=== PATIENT | male | born 1930 | race Caucasian/White ===

== ENCOUNTER → 2016-04-02 | Outpatient (CLI) | payer OTHER ==
--- NOTE | 2016-04-02 13:22 | US ---
Renal Sonography with Color and Spectral Doppler Assessment Clinical History: 85-year-old male with hypertension. ICD 10 Diagnostic Code: R03.0. Technique: A curvilinear 5 MHz transducer was used to sonographically evaluate each kidney, and suppl ementary color and spectral Doppler assessment of the main renal arteries and veins and of the segmen demian renal arteries was also performed. Comparison Study: None. Findings: RENAL SONOGRAPHY: The kidneys are normal in position with no focal mass, perinephric fluid, or hydron ephrosis. The right kidney measures 9.2 x 4.7 x 5.3 cm, and there is some mild renal cortical thinnin g measuring 0.98 cm. The left kidney measures 11.4 x 5.8 x 4.6 cm, and has a renal cortical thickness of 0.98 cm. Impression: Mild renal cortical thinning, with no hydronephrosis. RENAL VASCULAR DOPPLER ASSESSMENT: The peak systolic aortic velocity is 77 cm/s, and the right main r enal artery peak systolic velocity is 136 cm/s. The maximal peak systolic velocity to maximal aortic systolic velocity is 1.78 (normal should be less than 3.50). On the left side, this ratio measures 1. 37. The main renal arteries and veins are patent. There is no pulsus parvus et tardus waveform. The s ystolic ascension times range from 44 to 51 milliseconds involving the right segmental renal arteries , and up to 59 ms of the left segmental arteries (as a point of reference, normal should be under 70 ms). The resistive indices associated with each of the main renal arteries are mildly elevated (thoug h non-specific), measuring 0.81 on the right and 0.80 on the left (normal value is less than 0.70). Impression: There is no sonographic evidence of renal vascular hypertension.
== END ==
LOC: FIMAGING 11:41
PROVIDERS: ATTEND Nurse Practitioner Adult Health
DX: R03.0 Elevated blood-pressure reading, without diagnosis of hypertension (principal)

== ENCOUNTER → 2016-04-08 | Outpatient (CLI) | payer OTHER | LOC: BHFA 09:45 | PROVIDERS: ATTEND Internal Medicine Cardiovascular Disease | DX: I48.0 Paroxysmal atrial fibrillation (principal) ==

== ENCOUNTER → 2016-04-21 | Outpatient (CLI) | payer OTHER | LOC: BHFA 10:00 | PROVIDERS: ATTEND Internal Medicine Cardiovascular Disease | DX: I48.91 Unspecified atrial fibrillation (principal) ==

== ENCOUNTER → 2016-04-22 | Outpatient (CLI) | payer OTHER | LOC: BHFA 13:45 | PROVIDERS: ATTEND Internal Medicine Cardiovascular Disease | DX: I48.91 Unspecified atrial fibrillation (principal) ==

== ENCOUNTER 2016-05-11 14:05 | Emergency (ER) | payer OTHER ==
--- NOTE | 2016-05-11 15:31 | CPEKG ---
Heart Rate: 79 RR Interval: 759 P-R Interval: 171 QRSD Interval: 164 QT Interval: 452 QTC Interval: 519 P [place]: 0 QRS [place]: -90 T Wave [place]: 71 EKG Severity - ABNORMAL ECG - EKG Impression: VENTRICULAR-PACED RHYTHM Electronically Signed By: Bry Urrutia 12-May-2016 00:14:30
--- NOTE | 2016-05-11 15:44 | EDPHY ---
H & P Time Seen by Provider: 05/11/16 15:25 HPI/ROS: Chief complaint. shortness of breath, dizzy HPI. 4 day history of shortness of breath at night. Similar symptoms over the weekend. Awoke the patient. He now has exertional shortness of breath and feels his heart rate increases dramatically with any exertion. He quit Tikosyn 6 days ago began amiodarone 4 days ago. No fever cough. No chest discomfort no unusual leg pain or swelling. Pacer was last checked 1 week ago but he feels that maybe on the wrong mode ROS Constitutional. no fever/chills, no weakness Eyes. no problems with vision ENT. no sore throat, no nasal drainage Cardiovascular. no chest pain Respiratory. no shortness of breath, no cough Abdominal. no abdominal pain, no nausea/vomiting, no diarrhea . no problems urinating MS. no calf pain/swelling, no neck/back pain, no joint pain Skin. no rash Lymph. no swollen glands Neuro. no headache, no dizziness, no difficulty walking or with speech Past Medical/Surgical History: Past medical history significant for back surgery, prostate cancer, 5 vessel bypass in 1995. Mitral valve replaced air repair, Maze procedure, pacemaker Social History: , nonsmoker, no alcohol Smoking Status: Never smoked Physical Exam: General Appearance: Alert well-developed male Eyes: Pupils equal and round no pallor or injection. ENT, Mouth: Mucous membranes are moist. Respiratory: There are no retractions, lungs are clear to auscultation. Cardiovascular: Regular rate and rhythm. Gastrointestinal: Abdomen is soft and nontender, no masses, bowel sounds normal. Neurological: Awake and alert, sensory and motor exams grossly normal. Skin: Warm and dry, no rashes. Musculoskeletal: Neck is supple nontender. Extremities symmetrical, full range of motion. Psychiatric: Patient is oriented X 3, there is no agitation. Constitutional: Initial Vital Signs Temperature (C) 37 C 05/11/16 14:17 Heart Rate 84 05/11/16 14:17 Respiratory Rate 16 05/11/16 14:17 Blood Pressure 108/72 05/11/16 14:17 O2 Sat (%) 94 05/11/16 14:17 O2 Delivery Mode Room Air Allergies/Adverse Reactions: Beta-Blockers (Beta-Adrenergic Bloc Allergy (Intermediate, Verified 05/11/16 14: 22) Congestion Home Medications: Medication Instructions Recorded Magnesium Oxide [Magnesium Oxide 400 mg PO HS 01/01/13 400 mg (*)] Warfarin Sodium [Coumadin 5MG (*)] 5 mg PO SUTUWETHFRSA@16 04/14/13 Aspirin [Aspirin 81mg (*)] 81 mg PO HS 02/12/14 Warfarin Sodium [Coumadin 5MG (*)] 7.5 mg PO MO@16 02/12/14 Acetaminophen [Tylenol 325mg (*)] 650 mg PO Q6 PRN #0 tab 09/02/15 Multivitamins [Multivitamin (*)] 1 each PO DAILY 09/02/15 Rosuvastatin Calcium [Crestor 5mg] 5 mg PO HS 09/02/15 Amiodarone HCl 05/11/16 Medical Decision Making - Diagnostics EKG Interpretation: EKG shows ventricular paced rhythms. Interventricular conduction defect with this with left axis deviation. No significant ST elevation or depression. The rate is 79 Imaging: cxr intepreted by me shows increased heart size compared to 7 mo ago; c/w chf; patchy bilateral lower lobe infiltrates--pneumonia vs atelectasis Procedures: iv normal saline, mon itor ED Course/Re-evaluation: re-check at 5:10 pm-- patient is stable Pacemaker has been interrogated and no acute malfunction is identified On further evaluation and re-evaluation patient, his , and I discussed laboratory imaging and EKG evaluation as well as the pacemaker interrogation. The patient does appeared have CHF. I am concerned also as he has been switching medications per his corrective therapy aide. I recommended admission. The patient does not want to be admitted. I spoke and consulted with Dr. Garrett, cardiology, who feels that it would be reasonable to discharge the patient today and their office will see the patient tomorrow morning. I discussed this with the patient and his and they expressed understanding and agreement In the meantime blood cultures x2 and lactate are obtained because of concern for possible pneumonia Patient given Lasix in the emergency department for elevated BNP Patient's lactate is normal Patient was walking out of the department got very lightheaded was bending over and was near syncope. He was brought back to the room. We did do orthostatics which are borderline positive. I re-emphasized to the patient that I think he should stay in the hospital. He refuses. Risks and benefits are discussed. He is clearly able to make an informed decision Differential Diagnosis: I have been concerned about acute coronary syndrome, congestive heart failure, pneumonia, arrhythmia, pacemaker malfunction - Data Points Laboratory Results: Laboratory Results 05/11/16 15:27 05/11/16 15:27 05/11/16 05/11/16 05/11/16 17:35 15:27 15:27 WBC RBC Hgb Hct MCV MCH MCHC RDW Plt Count MPV Neut % (Auto) Lymph % (Auto) [place] % (Auto) Eos % (Auto) Baso % (Auto) Nucleat RBC Rel Count Absolute Neuts (auto) Absolute Lymphs (auto) Absolute Monos (auto) Absolute Eos (auto) Absolute Basos (auto) Absolute Nucleated RBC Immature Gran % Immature Gran # PT 38.5 SEC H SEC (12.0-15.0) INR 3.85 H (0.83-1.16) APTT 43.9 SEC H SEC (23.0-38.0) D-Dimer 0.34 ug/mLFEU ug/mLFEU (0.00-0.50) VBG Lactic Acid 1.4 mmol/L mmol/L (0.7-2.1) Sodium 138 mEq/L mEq/L (134-144) Potassium 5.0 mEq/L mEq/L (3.5-5.2) Chloride 104 mEq/L mEq/L (97-110) Carbon Dioxide 23 mEq/l mEq/l (22-31) Anion Gap 11 mEq/L mEq/L (8-16) BUN 39 mg/dL H mg/dL (7-23) Creatinine 1.5 mg/dL H mg/dL (0.7-1.3) Estimated GFR 44 Glucose 95 mg/dL mg/dL (70-100) Calcium 9.3 mg/dL mg/dL (8.5-10.4) Troponin I 0.022 ng/mL ng/mL (0-0.034) NT-Pro-B Natriuret Pep 2570 pg/mL H pg/mL (0-450) 05/11/16 15:27 WBC 6.31 10^3/uL 10^3/uL (3.80-9.50) RBC 4.69 10^6/uL 10^6/uL (4.40-6.38) Hgb 13.7 g/dL g/dL (13.7-17.5) Hct 43.1 % % (40.0-51.0) MCV 91.9 fL fL (81.5-99.8) MCH 29.2 pg pg (27.9-34.1) MCHC 31.8 g/dL L g/dL (32.4-36.7) RDW 14.3 % % (11.5-15.2) Plt Count 126 10^3/uL L 10^3/uL (150-400) MPV 12.9 fL H fL (8.7-11.7) Neut % (Auto) 72.8 % % (39.3-74.2) Lymph % (Auto) 14.9 % L % (15.0-45.0) [place] % (Auto) 10.1 % % (4.5-13.0) Eos % (Auto) 1.7 % % (0.6-7.6) Baso % (Auto) 0.3 % % (0.3-1.7) Nucleat RBC Rel Count 0.0 % % (0.0-0.2) Absolute Neuts (auto) 4.59 10^3/uL 10^3/uL (1.70-6.50) Absolute Lymphs (auto) 0.94 10^3/uL L 10^3/uL (1.00-3.00) Absolute Monos (auto) 0.64 10^3/uL 10^3/uL (0.30-0.80) Absolute Eos (auto) 0.11 10^3/uL 10^3/uL (0.03-0.40) Absolute Basos (auto) 0.02 10^3/uL 10^3/uL (0.02-0.10) Absolute Nucleated RBC 0.00 10^3/uL 10^3/uL (0-0.01) Immature Gran % 0.2 % % (0.0-1.1) Immature Gran # 0.01 10^3/uL 10^3/uL (0.00-0.10) PT INR APTT D-Dimer VBG Lactic Acid Sodium Potassium Chloride Carbon Dioxide Anion Gap BUN Creatinine Estimated GFR Glucose Calcium Troponin I NT-Pro-B Natriuret Pep Medications Given: Discontinued Medications Furosemide (Lasix) 40 mg PO EDNOW ONE Stop: 05/11/16 17:28 Last Admin: 05/11/16 17:44 Dose: 40 mg Sodium Chloride (Ns) 1,000 mls @ 0 mls/hr IV ONCE ONE PRN Reason: Wide Open Stop: 05/11/16 15:59 Last Admin: 05/11/16 16:33 Dose: 1,000 mls Departure - Departure Disposition: Home, Routine, Self-Care Clinical Impression: Congestive heart failure Qualifiers: Congestive heart failure type: unspecified congestive heart failure type Congestive heart failure chronicity: unspecified congestive heart failure chronicity Qualified Code(s): I50.9 - Heart failure, unspecified Condition: Good Instructions: Dyspnea (ED) Additional Instructions: Continue your regular medications. Return tonight for worsening breathing or chest discomfort. Call Dr. Townsend is office at 8:30 a.m. tomorrow morning for re- evaluation without fail. Referrals: Naila Coyle MD [Primary Care Provider] - As per Instructions Melvin Townsend MD [Medical Doctor] - 1 day without fail
[2016-05-11] MEDS ORDERED: NS 1,000 ML IV ONE (15:58)
[2016-05-11 16:08] LABS: % IMMATURE GRANULYOCYTES 0.2 % (0.0-1.1); ABSOLUTE IMMATURE GRANULOCYTES 0.01 10^3/uL (0.00-0.10); ADD DIFF? NO; ADD MORPH? NO; ADD SCAN? NO; ATYPICAL LYMPHOCYTE FLAG 10 (0-99); FRAGMENT RBC FLAG 0 (0-99); HEMATOCRIT 43.1 % (40.0-51.0); HEMOGLOBIN 13.7 g/dL (13.7-17.5); LEFT SHIFT FLG 0 (0-99); LIPEMIA HEMOLYSIS FLAG 80 (0-99); MEAN CELL HEMOGLOBIN 29.2 pg (27.9-34.1); MEAN CELL HEMOGLOBIN CONCENTR. 31.8 g/dL (32.4-36.7); MEAN CELL VOLUME 91.9 fL (81.5-99.8); MEAN PLATELET VOLUME 12.9 fL (8.7-11.7); PLATELET CLUMPS FLAG 0 (0-99); PLATELET COUNT 126 10^3/uL (150-400); RED BLOOD CELL COUNT 4.69 10^6/uL (4.40-6.38); RED CELL DISTRIBUTION WIDTH 14.3 % (11.5-15.2)
[2016-05-11 16:14] LABS: ANION GAP 11 mEq/L (8-16); CALCIUM 9.3 mg/dL (8.5-10.4); CARBON DIOXIDE 23 mEq/l (22-31); CHLORIDE 104 mEq/L (97-110); CREATININE 1.5 mg/dL (0.7-1.3); GLOMERULAR FILTRATION RATE 44; GLUCOSE 95 mg/dL (70-100); SODIUM 138 mEq/L (134-144)
[2016-05-11 16:17] LABS: INR 3.85 (0.83-1.16); PROTIME(PATIENT) 38.5 SEC (12.0-15.0)
[2016-05-11 16:18] LABS: APTT 43.9 SEC (23.0-38.0)
[2016-05-11 16:26] LABS: TROPONIN I 0.022 ng/mL (0-0.034)
[2016-05-11] MEDS ORDERED: FUROSEMIDE 40 MG TAB PO ONE (17:27)
[2016-05-11 18:15] VITALS: BP 115/78; PULSE 75; RESP 18; TEMP 99; O2SAT 93
== END 2016-05-11 18:42 | disposition home or self-care (01) ==
DX: I50.9 Heart failure, unspecified (principal); Z85.46 Personal history of malignant neoplasm of prostate; Z95.0 Presence of cardiac pacemaker; Z79.82 Long term (current) use of aspirin; Z79.01 Long term (current) use of anticoagulants

== ENCOUNTER 2016-05-12 09:11 | Inpatient (IN) | payer OTHER ==
--- NOTE | 2016-05-12 09:24 | EDPHY ---
H & P Time Seen by Provider: 05/12/16 09:24 HPI/ROS: CHIEF COMPLAINT: Short of breath, sent for admission from Cardiology HISTORY OF PRESENT ILLNESS: Patient was seen in the emergency department yesterday for nocturnal dyspnea was evaluated and admission recommended but the patient left against medical advice. He had been on Tikosyn, and had been off for several days but did not start his amiodarone until noon on Tuesday. Yesterday he appeared to be in congestive heart failure. He is a little bit dizzy on sitting or standing, lightheaded and not vertigo. He has shortness of breath which is not associated with cough or chest pain and is worse at night and he was unable to lie completely flat last night. Not worse with exertion. REVIEW OF SYSTEMS: Eye: no change in vision ENT: no sore throat Cardiac: HPI Pulmonary: HPI Abdomen: no vomiting, diarrhea, abdominal pain Musculoskeletal: Slight lower extremity edema unchanged Skin: no rash Neuro: no headache Constitutional: no fever : no urinary symptoms A comprehensive 10 point review of systems is otherwise negative aside from elements mentioned in the history of present illness. PAST MEDICAL HISTORY: Includes 5 vessel bypass, prostate cancer, back surgery, mitral valve replacement with Maze procedure, pacemaker. Social history: , present. General Appearance: Alert and conversant, cooperative. Eyes: No scleral icterus. ENT, Mouth: Normal mucous membranes. Respiratory: Normal respiratory effort, breath sounds equal, lungs are clear to auscultation. Cardiovascular: Irregular rate Gastrointestinal: Abdomen is soft and non tender. Neurological: Alert and oriented x3. Normally conversant. Face symmetric, normal movement and sensation in all extremities. Skin: Warm and dry, no rashes. Musculoskeletal: Trace bilateral peripheral edema but no calf tenderness. Psychiatric: Not agitated. Emergency Department course/MDM: Discussed with Cardiology nurse Esther who works with [facility], recommends admission. Patient says he is agreeable. Meri Suarez at 1054, 150mg IV bolus x2 of amiodarone, admission to hospital. Smoking Status: Never smoked Constitutional: Initial Vital Signs Temperature (C) 36.3 C 05/12/16 09:15 Heart Rate 81 05/12/16 09:15 Respiratory Rate 18 05/12/16 09:15 Blood Pressure 111/74 05/12/16 09:15 O2 Sat (%) 92 05/12/16 09:15 O2 Delivery Mode Room Air Allergies/Adverse Reactions: Beta-Blockers (Beta-Adrenergic Bloc Allergy (Intermediate, Verified 05/12/16 09: 11) Congestion Home Medications: Medication Instructions Recorded Magnesium Oxide [Magnesium Oxide 400 mg PO HS 01/01/13 400 mg (*)] Aspirin [Aspirin 81mg (*)] 81 mg PO HS 02/12/14 Multivitamins [Multivitamin (*)] 1 each PO DAILY 09/02/15 Rosuvastatin Calcium [Crestor 5mg] 5 mg PO HS 09/02/15 Amiodarone HCl [Pacerone (*)] 200 mg PO TID 05/11/16 Warfarin Sodium [Coumadin 2.5MG 2.5 mg PO WESA@16 05/12/16 (*)] Warfarin Sodium [Coumadin 5MG (*)] 5 mg PO SUMOTUTHFR@16 05/12/16 Medical Decision Making - Diagnostics EKG Interpretation: 12-lead EKG interpreted by me; official reading is in trace master. My interpretation is ventricular pacing with right bundle branch, rate 81. Differential Diagnosis: Differential for near-syncope considered including but not limited to hypoglycemia, anemia, cardiac dysrhythmia, medication side effect Consult/Admit Bed Type: [facility] - Data Points Laboratory Results: Laboratory Results 05/12/16 09:45 05/12/16 09:45 05/12/16 05/12/16 05/12/16 09:45 09:45 09:45 WBC 7.16 10^3/uL 10^3/uL (3.80-9.50) RBC 4.60 10^6/uL 10^6/uL (4.40-6.38) Hgb 13.7 g/dL g/dL (13.7-17.5) Hct 42.9 % % (40.0-51.0) MCV 93.3 fL fL (81.5-99.8) MCH 29.8 pg pg (27.9-34.1) MCHC 31.9 g/dL L g/dL (32.4-36.7) RDW 14.3 % % (11.5-15.2) Plt Count 129 10^3/uL L 10^3/uL (150-400) MPV 12.9 fL H fL (8.7-11.7) Neut % (Auto) 74.0 % % (39.3-74.2) Lymph % (Auto) 13.4 % L % (15.0-45.0) [place] % (Auto) 9.5 % % (4.5-13.0) Eos % (Auto) 2.4 % % (0.6-7.6) Baso % (Auto) 0.3 % % (0.3-1.7) Nucleat RBC Rel Count 0.0 % % (0.0-0.2) Absolute Neuts (auto) 5.30 10^3/uL 10^3/uL (1.70-6.50) Absolute Lymphs (auto) 0.96 10^3/uL L 10^3/uL (1.00-3.00) Absolute Monos (auto) 0.68 10^3/uL 10^3/uL (0.30-0.80) Absolute Eos (auto) 0.17 10^3/uL 10^3/uL (0.03-0.40) Absolute Basos (auto) 0.02 10^3/uL 10^3/uL (0.02-0.10) Absolute Nucleated RBC 0.00 10^3/uL 10^3/uL (0-0.01) Immature Gran % 0.4 % % (0.0-1.1) Immature Gran # 0.03 10^3/uL 10^3/uL (0.00-0.10) PT 39.8 SEC H SEC (12.0-15.0) INR 4.01 H (0.83-1.16) APTT 46.8 SEC H SEC (23.0-38.0) Sodium 139 mEq/L mEq/L (134-144) Potassium 4.3 mEq/L mEq/L (3.5-5.2) Chloride 107 mEq/L mEq/L (97-110) Carbon Dioxide 21 mEq/l L mEq/l (22-31) Anion Gap 11 mEq/L mEq/L (8-16) BUN 40 mg/dL H mg/dL (7-23) Creatinine 1.6 mg/dL H mg/dL (0.7-1.3) Estimated GFR 41 Glucose 101 mg/dL H mg/dL (70-100) Calcium 9.5 mg/dL mg/dL (8.5-10.4) Troponin I 0.025 ng/mL ng/mL (0-0.034) NT-Pro-B Natriuret Pep 2490 pg/mL H pg/mL (0-450) Medications Given: Discontinued Medications Amiodarone HCl (Amiodarone Hcl) 150 mg IV EDNOW ONE Stop: 05/12/16 10:56 Last Admin: 05/12/16 12:02 Dose: 150 mg Amiodarone HCl (Amiodarone Hcl) 100 mls @ 600 mls/hr IV ONCE ONE Stop: 05/12/16 12:50 Last Admin: 05/12/16 13:19 Dose: 100 mls Departure - Departure Disposition: [facility] Clinical Impression: Atrial fibrillation Qualifiers: Atrial fibrillation type: unspecified Qualified Code(s): I48.91 - Unspecified atrial fibrillation Condition: Good
--- NOTE | 2016-05-12 09:46 | CPEKG ---
Heart Rate: 81 RR Interval: 741 P-R Interval: 144 QRSD Interval: 154 QT Interval: 428 QTC Interval: 497 P [place]: 0 QRS [place]: -81 T Wave [place]: 79 EKG Severity - ABNORMAL ECG - EKG Impression: VENTRICULAR-PACED COMPLEXES EKG Impression: RIGHT BUNDLE BRANCH BLOCK Electronically Signed By: Evangelista Minor 12-May-2016 09:58:39
[2016-05-12 09:57] LABS: % IMMATURE GRANULYOCYTES 0.4 % (0.0-1.1); ABSOLUTE IMMATURE GRANULOCYTES 0.03 10^3/uL (0.00-0.10); ADD DIFF? NO; ADD MORPH? NO; ADD SCAN? NO; ATYPICAL LYMPHOCYTE FLAG 0 (0-99); FRAGMENT RBC FLAG 0 (0-99); HEMATOCRIT 42.9 % (40.0-51.0); HEMOGLOBIN 13.7 g/dL (13.7-17.5); LEFT SHIFT FLG 0 (0-99); LIPEMIA HEMOLYSIS FLAG 80 (0-99); MEAN CELL HEMOGLOBIN 29.8 pg (27.9-34.1); MEAN CELL HEMOGLOBIN CONCENTR. 31.9 g/dL (32.4-36.7); MEAN CELL VOLUME 93.3 fL (81.5-99.8); MEAN PLATELET VOLUME 12.9 fL (8.7-11.7); PLATELET CLUMPS FLAG 20 (0-99); PLATELET COUNT 129 10^3/uL (150-400); RED CELL DISTRIBUTION WIDTH 14.3 % (11.5-15.2)
[2016-05-12 10:07] LABS: APTT 46.8 SEC (23.0-38.0); INR 4.01 (0.83-1.16); PROTIME(PATIENT) 39.8 SEC (12.0-15.0)
[2016-05-12 10:16] LABS: ANION GAP 11 mEq/L (8-16); CALCIUM 9.5 mg/dL (8.5-10.4); CARBON DIOXIDE 21 mEq/l (22-31); CHLORIDE 107 mEq/L (97-110); CREATININE 1.6 mg/dL (0.7-1.3); GLOMERULAR FILTRATION RATE 41; GLUCOSE 101 mg/dL (70-100); POTASSIUM 4.3 mEq/L (3.5-5.2); SODIUM 139 mEq/L (134-144)
[2016-05-12 10:28] LABS: TROPONIN I 0.025 ng/mL (0-0.034)
[2016-05-12] MEDS ORDERED: AMIODARONE HCL 150 MG/3 ML VIAL IV ONE (10:55)
[2016-05-12] MEDS ORDERED: AMIODARONE HCL 100 ML IV ONE (12:41)
--- NOTE | 2016-05-12 14:10 | PDCARPN ---
Cardiology Progress Note Chief Complaint: Tachycardia and lightheadedness Assessment/Plan: Assessment: Royal is a 85 y/o M with a history of difficult to control atrial fibrillation , tachy melly syndrome s/p pacemaker, and CAD s/p CABG. He was last seen in our office on 05/[address] Mcneill who d/c his Tikosyn at that time and started him on Amiodarone. He misunderstood and did not start Amio until Wednesday 05/10 at noon. He presented to the ER yesterday with a.fib with RVR and presyncope. Admission was recommended but he refused. He presented to our office this morning with similar symptoms and was directed back to the ER. He is convinced that his pacemaker is not working. It was interrogated yesterday and working properly. He is in a.fib rate controlled at 78 BPM at rest. His rates spike with even minimal exertion and are associated with presyncope. Plan: Amiodarone 150mg bolus x1. If he remains in atrial fibrillation it can be repeat 30 minutes later. Will plan to d/c home if he converts NSR. If he remains in a.fib with RVR he will be admitted for rate control. INR is supratherapeutic. Dose was already reduced but will need to hold x1 day and continue to monitor. 05/12/16 14:38 Subjective: Pt complaining of dizziness and tachycardia with standing. Objective: Vital Signs (8 Hrs) Temp Pulse Resp BP Pulse Ox 05/12/16 13:49 85 20 89/60 L 98 05/12/16 12:31 79 126/89 H 05/12/16 12:20 81 16 05/12/16 12:10 79 18 05/12/16 12:00 79 16 95 05/12/16 11:18 36.6 C 85 16 128/90 H 96 Intake/Output (24 Hrs) 05/11/16 05/12/16 05/13/16 05:59 05:59 05:59 Intake Total 200 Balance 200 Intake: IV Infused (ml) 200 Other: Weight 82.2 kg tele-a.fib with V pacing Result Diagrams: 05/12/16 09:45 05/12/16 09:45 - Physical Exam Constitutional: WDWN Cardiovascular: no rubs, no gallops, irregularly irregular Respiratory: clear to auscultate bilat Skin: no edema Neurologic: AAOx3 ICD10 Worksheet Patient Problems: Problems Problem Status Onset Atrial fibrillation Acute Chest pain Acute Coronary artery arteriosclerosis Acute Syncope Acute
[2016-05-12] MEDS ORDERED: ACETAMINOPHEN 325 MG TAB PO PRN (15:48)
[2016-05-12] MEDS ORDERED: ONDANSETRON DISINTEGRATING 4 MG TAB PO PRN (15:48)
[2016-05-12] MEDS ORDERED: LORazepam 2 MG/ML INJ IVP PRN (15:48)
[2016-05-12] MEDS ORDERED: ALBUTEROL 60 PUFFS/8 GM MDI IH PRN (15:48)
[2016-05-12] MEDS ORDERED: ZOLPIDEM TARTRATE 5 MG TAB PO PRN (15:48)
[2016-05-12] MEDS ORDERED: LORazepam 0.5 MG TAB PO PRN (15:48)
[2016-05-12] MEDS ORDERED: ONDANSETRON 4 MG/2 ML VIAL IVP PRN (15:48)
[2016-05-12] MEDS ORDERED: WARFARIN SODIUM 2.5 MG TAB PO SCH (16:00)
[2016-05-12] MEDS: AMIODARONE HCL 200 MG TAB PO SCH ×2 (16:14→20:30)
--- NOTE | 2016-05-12 16:27 | GHP ---
[f rep st] HISTORY AND PHYSICAL DATE OF ADMISSION: 05/12/2016 CHIEF COMPLAINT: Shortness of breath. HISTORY OF PRESENT ILLNESS: This is an elderly gentleman who presents with a complaint of shortness of breath for approximately 5 days. The gentleman stopped his Tikosyn approximately 5 days ago, an d perhaps 3 days ago he noticed a feeling of nocturnal dyspnea. He was short of breath for approxim ately 2-3 hours at night three days ARMHOLE BASTER HAND. It then seemed to resolve during the day and then would in termittently come back again at 1 and 2 days ARMHOLE BASTER HAND. This has occurred without clear history of orthop ramon, PND, or peripheral edema. He has also had no chest pain, nausea, vomiting, or diaphoresis. Of note, the gentleman has a history of atrial fibrillation, and beta-blockers are contraindicated. Antonio winters was on Tikosyn, but this was stopped 5 days ARMHOLE BASTER HAND because of prolonged QT interval. Amiodarone was started today. He had presented earlier to the emergency department and was told to start his amiod arone, went home but came back because of recurrent shortness of breath. Again, this has occurred w ithout chest pain. He has a history of a mitral valve replacement, is anticoagulated, prior coronar y artery disease with a CABG x5 vessels, and has a pacemaker in place. Though he has been short of breath, he has had no dizziness, weakness, or near-syncopal episodes. PAST MEDICAL HISTORY: 1. Coronary artery disease, status post CABG x5 vessels. 2. Atrial fibrillation and atrial flutter, on Coumadin anticoagulation. 3. Hypertension. 4. Chronic systolic congestive heart failure with a known EF approximately 50%. 5. Valvular heart disease, status post mitral valve repair with a maze procedure. 6. He had a pacemaker placed. PAST SURGICAL HISTORY: 1. A 5-vessel CABG. 2. A maze procedure and 1-vessel CABG. 3. Mitral valve repair. 4. Permanent pacemaker. SOCIAL HISTORY: The gentleman is . His is currently suffering from dementia. The alvin ent has 2 children in the local area. He is a nonsmoker and has never smoked. No drug use. No alc ohol. He exercises regularly. FAMILY HISTORY: He has family members who have had coronary artery disease at the ages less than 60 including a brother who had an IN at the age of 38, which was a cause of the brother's . His father had an IN at 55 which was also the cause of his . CURRENT MEDICATIONS: Now include amiodarone, Coumadin at 5 mg alternating with 2.5 on a schedule, C restor, multivitamins, aspirin, and magnesium oxide. REVIEW OF SYSTEMS: A 10-point review of systems is negative except as noted in the HPI. Specifical ly, also negative is he has had no nausea, vomiting, or change in bowel habits or any abdominal pain . He also notes no dysuria, frequency, or back pain. He is concerned about a renal ultrasound that was done approximately a month ago, and I have offered to obtain the results of that study. He has some minor joint aches but no constant single joint problems and no history of gout. ALLERGIES: He is allergic to a beta-bonita. Beta-blockers cause probably pulmonary edema and jarad estive heart failure. It is unclear which, but he has had them on several occasions and all have re sulted in episodes of congestive failure. PHYSICAL EXAMINATION: GENERAL: A pleasant gentleman who is resting comfortably in his room during my evaluation. VITAL SIGNS: He is afebrile, adequate oxygenation on room air. Blood pressure is n ormal, and his heart rate varies between paced and atrial fibrillation. The atrial fibrillation can vary as high as 110-115, but when he drops into a paced rhythm, he is paced at approximately 80. H EENT: Shows no scleral icterus or nystagmus. Throat is benign. Tongue and buccal mucosa are emilia l. JVP does not appear to be elevated. LUNGS: Clear to P and A without wheezing or rales. HEART: Singular S1 and a fixed split S2. He has a systolic ejection murmur and a loud S2 noted. No LV h eave is noted. ABDOMEN: Thin, normoactive bowel sounds, benign. No masses, tenderness, or organom egaly. EXTREMITIES: No edema, cyanosis, clubbing. LABORATORY: CBC is normal but a slightly low platelet count of 129,000. INR is elevated at 4.0. C hemistry panel shows chronic kidney disease along with a BUN of 40, creatinine of 1.6, and a BNP kervin vated at 2490. Potassium is 4.3. ASSESSMENT: 1. Acute episodes of dyspnea and perhaps shortness of breath probably related to episodes of uncont rolled atrial fibrillation with rapid ventricular response. The gentleman stop Tikosyn because of p rolonged QT interval but had to wash out the Tikosyn before he began the amiodarone. In the interva l, he has probably had episodes of atrial fibrillation with RVR. He is adequately anticoagulated so his risk of stroke is considerably reduced here. Today I note that he varies between a paced rhyth m and atrial fibrillation at approximately 110-115. He is not experiencing any shortness of breath. He has restarted his amiodarone which he is taking at 200 three times daily. Thus, we will contin ue his amiodarone, continue to monitor, and assess stability. It is possible that the pacemaker may need to be interrogated as he says at times he has had slower heart rates than 80. I suspect he is counting beats of atrial fibrillation and cannot feel the actual measured beat because the pulse is weak on various beats in atrial fibrillation. Despite that, I will contact Cardiology and see if linda swartz have some interest in interrogating his pacemaker. 2. History of hypertension, but he is normotensive at this time. 3. Beta-bonita allergy. These need to be avoided in control of his atrial fibrillation as Boydlawson potter is doing. 4. Anticoagulation on Coumadin. I am going to continue his usual schedule of Coumadin. He is curr ently adequately anticoagulated. 5. Chronic problems with prior lumbar surgery, mitral valve replacement, and a pacemaker. 6. DVT prophylaxis will be unnecessary as he is adequately anticoagulated. 7. His code status is full. BILLING: This gentleman will be admitted on observation status. It is possible we will be able to stabilize this gentleman in the next 24 hours just by continuing his amiodarone. Should this not co ntrol, then we will need to convert him to inpatient, but at this time we will place him in observat ion. TIME: This admission required 55 minutes, greater than 50% to vocational rehabilitation counselor and coordinate care. /[id number]/MODL
[2016-05-12] MEDS ORDERED: WARFARIN SODIUM 5 MG TAB PO SCH (17:00)
[2016-05-12] MEDS: ASPIRIN 81 MG CHEWABLE TAB PO SCH (20:30)
[2016-05-12] MEDS: ROSUVASTATIN CALCIUM 10 MG TAB PO SCH (20:30)
[2016-05-12] MEDS: MAGNESIUM OXIDE 400 MG TAB PO SCH (20:30)
[2016-05-13 05:15] LABS: % IMMATURE GRANULYOCYTES 0.3 % (0.0-1.1); ABSOLUTE IMMATURE GRANULOCYTES 0.02 10^3/uL (0.00-0.10); ADD DIFF? NO; ADD MORPH? NO; ADD SCAN? NO; ATYPICAL LYMPHOCYTE FLAG 0 (0-99); FRAGMENT RBC FLAG 0 (0-99); HEMATOCRIT 40.6 % (40.0-51.0); HEMOGLOBIN 12.9 g/dL (13.7-17.5); LEFT SHIFT FLG 0 (0-99); LIPEMIA HEMOLYSIS FLAG 80 (0-99); MEAN CELL HEMOGLOBIN 29.6 pg (27.9-34.1); MEAN CELL HEMOGLOBIN CONCENTR. 31.8 g/dL (32.4-36.7); MEAN CELL VOLUME 93.1 fL (81.5-99.8); MEAN PLATELET VOLUME 12.8 fL (8.7-11.7); PLATELET CLUMPS FLAG 0 (0-99); PLATELET COUNT 119 10^3/uL (150-400); RED BLOOD CELL COUNT 4.36 10^6/uL (4.40-6.38); RED CELL DISTRIBUTION WIDTH 14.3 % (11.5-15.2)
[2016-05-13 05:24] LABS: INR 4.74 (0.83-1.16); PROTIME(PATIENT) 45.5 SEC (12.0-15.0)
[2016-05-13 05:30] LABS: ANION GAP 10 mEq/L (8-16); CALCIUM 9.3 mg/dL (8.5-10.4); CARBON DIOXIDE 24 mEq/l (22-31); CHLORIDE 107 mEq/L (97-110); CREATININE 1.7 mg/dL (0.7-1.3); GLOMERULAR FILTRATION RATE 38; GLUCOSE 97 mg/dL (70-100); POTASSIUM 4.8 mEq/L (3.5-5.2); SODIUM 141 mEq/L (134-144)
[2016-05-13] MEDS: MULTIVITAMINS 1 EACH TAB PO SCH (08:38)
[2016-05-13] MEDS: AMIODARONE HCL 200 MG TAB PO SCH (08:39)
--- NOTE | 2016-05-13 09:25 | CPEKG ---
Heart Rate: 79 RR Interval: 759 P-R Interval: 170 QRSD Interval: 160 QT Interval: 460 QTC Interval: 528 P Sylmar: 0 QRS Sylmar: 267 T Wave Sylmar: 82 EKG Severity - ABNORMAL ECG - EKG Impression: VENTRICULAR-PACED RHYTHM Electronically Signed By: Gatito Morgan 14-May-2016 09:07:14
[2016-05-13] MEDS ORDERED: AMIODARONE HCL 540 MG in D5W 300 ML IV ONE (10:25)
--- NOTE | 2016-05-13 10:39 | PDCARPN ---
Cardiology Progress Note Chief Complaint: mild dizziness with walking Assessment/Plan: Assessment: Royal is a 85 y/o M with a history of difficult to control atrial fibrillation , tachy melly syndrome s/p pacemaker, and CAD s/p CABG. He was last seen in our office on 05/[address] Mcneill who d/c his Tikosyn at that time and started him on Amiodarone. He misunderstood and did not start Amio until Wednesday 05/10 at noon. He presented to the ER yesterday with a.fib with RVR and presyncope. Admission was recommended but he refused. He presented to our office this morning with similar symptoms and was directed back to the ER. He is convinced that his pacemaker is not working. It was interrogated yesterday and working properly. He is in a.fib rate controlled at 78 BPM at rest. His rates spike with even minimal exertion and are associated with presyncope. He was given Amiodarone 150mg IV x2 yesterday. His rates are better controlled with standing and exertion at 110. He is still mildly dizzy with this. Plan: 1. PAF- rates are well controlled at rest but spike with even minimal exertion. This is associated with presyncope. His rates are better controlled today but he has remained in a.fib. Will given maintance infusion over 18 hours and continue to monitor. If he converts to NSR he can be d/c home. If he remains in a.fib plan for CV tomorrow morning. His INR has been therapeutic over the past month. He is now supratherapeutic. Continue to hold Coumadin and likely d /c home on 2.5mg daily. 05/13/16 10:35 Subjective: c/o mild dizziness with exertion but it is improved from yesterday. No syncope or presyncope. Objective: Vital Signs (8 Hrs) Temp Pulse Resp BP Pulse Ox 05/13/16 08:00 36.4 C 79 16 129/92 H 98 05/13/16 04:00 36.7 C 96 18 109/89 H 96 Intake/Output (24 Hrs) 05/12/16 05/13/16 05/14/16 05:59 05:59 05:59 Intake Total 700 Balance 700 Intake: Oral (ml) 500 IV Infused (ml) 200 Other: Weight 82.2 kg Number of Voids Toilet 1 Result Diagrams: 05/13/16 04:48 05/13/16 04:48 EKG: V-paced with underlying a.fib Telemetry: V-paced with underlying a.fib - Physical Exam Constitutional: WDWN Cardiovascular: no murmurs, no rubs, no gallops, irregularly irregular Respiratory: clear to auscultate bilat, no crackles, no wheezes Skin: no edema ICD10 Worksheet Patient Problems: Problems Problem Status Onset Atrial fibrillation Acute Atrial fibrillation Acute Chest pain Acute Coronary artery arteriosclerosis Acute Syncope Acute
--- NOTE | 2016-05-13 11:35 | HOSPPROG ---
Hospitalist Progress Note Assessment/Plan: * atrial fibrillation rapid ventricular response * rate better * getting amiodarone infusion * recently stopped Tykosin due to long QT * cardioversion the morning if does not convert * acute renal failure * not sure the cause * may try a little bit of fluid overnight and recheck * elevated INR * holding Coumadin * coronary artery disease status post CABG * hypertension * chronic systolic CHF * status post mitral valve repair * pacemaker Subjective: no new complaints Objective: Vital Signs Temp Pulse Resp BP Pulse Ox 36.3 C 80 20 112/68 98 05/13/16 10:53 05/13/16 10:53 05/13/16 10:53 05/13/16 10:53 05/13/16 10:53 Laboratory Results 05/13/16 04:48 05/13/16 04:48 05/12/16 05/13/16 05/14/16 05:59 05:59 05:59 Intake Total 700 500 Balance 700 500 PT 45.5 SEC (12.0-15.0) H 05/13/16 04:48 INR 4.74 (0.83-1.16) H 05/13/16 04:48 tele personally viewed interpreted rate controlled atrial fibrillation discussed with Cardiology - Physical Exam Constitutional: no apparent distress, appears nourished, not in pain Eyes: anicteric sclera, EOMI Ears, Nose, Mouth, Throat: moist mucous membranes, hearing normal, ears appear normal Cardiovascular: no murmur, rub, or gallop, irregularly irregular Respiratory: no respiratory distress, no rales or rhonchi, clear to auscultation Gastrointestinal: normoactive bowel sounds, soft, non-tender abdomen, no palpable masses Skin: warm Neurologic: AAOx3 Psychiatric: interacting appropriately, not anxious, not encephalopathic, thought process linear ICD10 Worksheet Patient Problems: Problems Problem Status Onset Atrial fibrillation Acute Atrial fibrillation Acute Chest pain Acute Coronary artery arteriosclerosis Acute Syncope Acute
[2016-05-13] MEDS: ROSUVASTATIN CALCIUM 10 MG TAB PO SCH (21:59)
[2016-05-13] MEDS: MAGNESIUM OXIDE 400 MG TAB PO SCH (22:00)
[2016-05-13] MEDS: ASPIRIN 81 MG CHEWABLE TAB PO SCH (22:00)
[2016-05-14 05:21] LABS: CALCIUM 9.6 mg/dL (8.5-10.4); CARBON DIOXIDE 21 mEq/l (22-31); CHLORIDE 107 mEq/L (97-110); CREATININE 1.8 mg/dL (0.7-1.3); GLOMERULAR FILTRATION RATE 36; GLUCOSE 111 mg/dL (70-100); SODIUM 139 mEq/L (134-144)
[2016-05-14 05:22] LABS: ANION GAP 11 mEq/L (8-16); POTASSIUM 5.1 mEq/L (3.5-5.2)
[2016-05-14 05:42] LABS: INR 4.18 (0.83-1.16); PROTIME(PATIENT) 41.1 SEC (12.0-15.0)
[2016-05-14 05:43] LABS: APTT 46.7 SEC (23.0-38.0)
[2016-05-14] MEDS: MULTIVITAMINS 1 EACH TAB PO SCH (07:35)
--- NOTE | 2016-05-14 09:16 | CPEKG ---
Heart Rate: 79 RR Interval: 759 P-R Interval: 168 QRSD Interval: 170 QT Interval: 464 QTC Interval: 533 P Somers: 0 QRS Somers: -88 T Wave Somers: 84 EKG Severity - ABNORMAL ECG - EKG Impression: VENTRICULAR-PACED RHYTHM Electronically Signed By: Gatito Morgan 14-May-2016 14:31:41
[2016-05-14] MEDS ORDERED: PROPOFOL 200 MG/20 ML VIAL ONE (11:57)
--- NOTE | 2016-05-14 12:15 | CPEKG ---
Heart Rate: 70 RR Interval: 857 QRSD Interval: 126 QT Interval: 452 QTC Interval: 488 QRS Clements: 38 T Wave Clements: -64 EKG Severity - ABNORMAL ECG - EKG Impression: ACCELERATED JUNCTIONAL RHYTHM EKG Impression: RIGHT BUNDLE BRANCH BLOCK EKG Impression: ANTERIOR INFARCT, AGE INDETERMINATE Electronically Signed By: Gatito Morgan 14-May-2016 14:31:51
--- NOTE | 2016-05-14 12:58 | EPPROC ---
Electrophysiology Procedure Note: Proceduer: CV Indication: Symptomatic AF Procedure: pt sedated by anesthesia staff. DCCV 200J given and pt converted to SR. Then brief episdoe of Aflutter and then went into AT. This was pace terminated. Pt remained in SR Conclusion: SUccessful CV Patient Problems: Problems Problem Status Onset Atrial fibrillation Acute Atrial fibrillation Acute Chest pain Acute Coronary artery arteriosclerosis Acute Syncope Acute
[2016-05-14 13:47] VITALS: BP 159/92; PULSE 72; RESP 15; TEMP 96.9; O2SAT 97
--- NOTE | 2016-05-14 14:13 | PDCARPN ---
Cardiology Progress Note Chief Complaint: dizziness Assessment/Plan: Assessment: Royal is a 85 y/o M with a history of difficult to control atrial fibrillation , tachy melly syndrome s/p pacemaker, and CAD s/p CABG. He was last seen in our office on 05/[address] Mcneill who d/c his Tikosyn at that time and started him on Amiodarone. He misunderstood and did not start Amio until Wednesday 05/10 at noon. He presented to the ER yesterday with a.fib with RVR and presyncope. Admission was recommended but he refused. He presented to our office this morning with similar symptoms and was directed back to the ER. He is convinced that his pacemaker is not working. It was interrogated yesterday and working properly. He is in a.fib rate controlled at 78 BPM at rest. His rates spike with even minimal exertion and are associated with presyncope. He was given Amiodarone 150mg IV x2 yesterday. His rates are better controlled with standing and exertion at 110. He is still mildly dizzy with this. Plan: 1. PAF- rates are well controlled at rest but spike with even minimal exertion. This is associated with presyncope. His rates improved with Amio but were still elevated. He had a successful CV today and is maintaining NSR. His dizzines is better but he has not been very active. He can be d/c home on Amiodarone 200mg daily. His INR has been elevated and is currently 4.18. Hold Coumadin x2 days and then begin 200mg daily. He is scheduled for a INR at the Coumadin clinic next week. 2. ARF- likely related to hypotension. Repeat BMP on next week. He will follow up with his PCP. 05/14/16 14:14 Subjective: mild dizziness but overall feels better in NSR Objective: Vital Signs (8 Hrs) Temp Pulse Resp BP Pulse Ox 05/14/16 13:39 36.1 C 72 15 159/92 H 97 05/14/16 11:03 35.7 C L 80 18 121/85 H 98 05/14/16 07:48 36.6 C 82 18 125/84 H 95 Intake/Output (24 Hrs) 05/13/16 05/14/16 05/15/16 05:59 05:59 05:59 Intake Total 903.2 Balance 903.2 Intake: Oral (ml) 650 IV Intake (ml) 153 IV Infused (ml) 100.2 Amiodarone HCl 540 mg In 100.2 D5w 300 ml @ 16.667 mls/ hr IV ONCE ONE Rx#: [id number] Other: Intake Quantity npo Sufficient Number of Voids Toilet 2 Result Diagrams: 05/13/16 04:48 05/14/16 04:30 - Physical Exam Constitutional: WDWN Cardiovascular: regular rate and rhythm Respiratory: clear to auscultate bilat Skin: no edema ICD10 Worksheet Patient Problems: Problems Problem Status Onset Atrial fibrillation Acute Atrial fibrillation Acute Chest pain Acute Coronary artery arteriosclerosis Acute Syncope Acute
--- NOTE | 2016-05-14 17:18 | GDS ---
[f rep st] DISCHARGE SUMMARY DISCHARGE DIAGNOSES: 1. Atrial fibrillation with rapid ventricular response. 2. History of coronary artery disease. 3. Hypertension. 4. Chronic systolic congestive heart failure. 5. Pacemaker. HISTORY: This is an 85-year-old male who has jaxyayydy-pi-quubdmr atrial fibrillation. He was on T ikosyn, but that was discontinued due to prolonged QT. He was instructed to start amiodarone a few days later, but he did not. He presented with rapid atrial fibrillation. HOSPITAL COURSE: The patient was admitted. He was started on an amiodarone drip with loading. He then did not convert and thus, he was cardioverted. He will be discharged home on 200 mg of amiodar one daily. His INR is elevated at over 4. He was instructed to discontinue his Coumadin, and he wi ll follow up with the Coumadin clinic in 2 days for a PT/INR. /[id number]/MODL
== END 2016-05-14 18:00 | disposition home or self-care (01) | DRG 309 ==
LOC: F2W 13:50 → OBSVTOIN 05-13 11:29
PROVIDERS: ADMIT Internal Medicine Pulmonary Disease; ATTEND Internal Medicine
PROC: 5A2204Z Restoration of Cardiac Rhythm, Single (ICD-10-PCS; principal; 2016-05-14)
DX: I48.0 Paroxysmal atrial fibrillation (principal); I25.10 Atherosclerotic heart disease of native coronary artery without angina pectoris; I50.22 Chronic systolic (congestive) heart failure; I11.0 Hypertensive heart disease with heart failure; N17.9 Acute kidney failure, unspecified; Z95.0 Presence of cardiac pacemaker; Z79.01 Long term (current) use of anticoagulants; Z95.1 Presence of aortocoronary bypass graft
CPT/HCPCS: 96374; G0378; J0282; J2704

== ENCOUNTER → 2016-05-19 | Outpatient (CLI) | payer OTHER | LOC: BHFA 14:45 | PROVIDERS: ATTEND Internal Medicine Cardiovascular Disease | DX: I48.91 Unspecified atrial fibrillation (principal) ==

== ENCOUNTER → 2016-05-20 | Outpatient (CLI) | payer OTHER | LOC: FIMAGING 15:43 | PROVIDERS: ATTEND Internal Medicine Cardiovascular Disease | DX: Z51.81 Encounter for therapeutic drug level monitoring (principal); R91.8 Other nonspecific abnormal finding of lung field; I50.9 Heart failure, unspecified; Z95.4 Presence of other heart-valve replacement; Z95.0 Presence of cardiac pacemaker ==

== ENCOUNTER → 2016-05-27 | Outpatient (CLI) | payer OTHER | LOC: BHFA 08:00 | PROVIDERS: ATTEND Internal Medicine Cardiovascular Disease | DX: J45.909 Unspecified asthma, uncomplicated (principal); Z79.899 Other long term (current) drug therapy ==

== ENCOUNTER → 2016-06-07 | Outpatient (CLI) | payer OTHER | LOC: BHFA 15:15 | PROVIDERS: ATTEND Internal Medicine Interventional Cardiology | DX: I25.10 Atherosclerotic heart disease of native coronary artery without angina pectoris (principal); E78.5 Hyperlipidemia, unspecified; R07.9 Chest pain, unspecified ==

== ENCOUNTER → 2016-06-17 | Outpatient (CLI) | payer OTHER | LOC: BHFA 11:00 | PROVIDERS: ATTEND Internal Medicine Cardiovascular Disease | DX: I48.91 Unspecified atrial fibrillation (principal) ==

== ENCOUNTER → 2016-06-25 | Outpatient (CLI) | payer OTHER | LOC: BHFA 11:30 | PROVIDERS: ATTEND Internal Medicine Interventional Cardiology | DX: I48.91 Unspecified atrial fibrillation (principal); I25.10 Atherosclerotic heart disease of native coronary artery without angina pectoris; R06.02 Shortness of breath; I20.9 Angina pectoris, unspecified ==

== ENCOUNTER → 2016-12-31 | Outpatient (CLI) | payer OTHER | LOC: FIMAGING 08:18 | PROVIDERS: ATTEND Family Medicine | DX: R93.421 Abnormal radiologic findings on diagnostic imaging of right kidney (principal) ==

== ENCOUNTER → 2017-01-26 | Outpatient (CLI) | payer OTHER | LOC: BHFA 09:00 | PROVIDERS: ATTEND Internal Medicine Cardiovascular Disease | DX: R06.02 Shortness of breath (principal); I34.0 Nonrheumatic mitral (valve) insufficiency ==

== ENCOUNTER → 2017-02-15 | Outpatient (CLI) | payer OTHER | LOC: FIMAGING 08:53 | PROVIDERS: ATTEND Family Medicine | DX: M48.061 Spinal stenosis, lumbar region without neurogenic claudication (principal); M51.36 Other intervertebral disc degeneration, lumbar region; M46.96 Unspecified inflammatory spondylopathy, lumbar region; M46.97 Unspecified inflammatory spondylopathy, lumbosacral region; M51.34 Other intervertebral disc degeneration, thoracic region; M51.35 Other intervertebral disc degeneration, thoracolumbar region ==

== ENCOUNTER → 2017-06-07 | Outpatient (CLI) | payer OTHER | LOC: BHFA 15:15 | PROVIDERS: ATTEND Internal Medicine Cardiovascular Disease | DX: R06.02 Shortness of breath (principal); I42.9 Cardiomyopathy, unspecified ==

== ENCOUNTER → 2017-07-11 | Outpatient (CLI) | payer OTHER | LOC: BHFA 15:30 | PROVIDERS: ATTEND Internal Medicine Cardiovascular Disease | DX: I73.9 Peripheral vascular disease, unspecified (principal) ==

== ENCOUNTER 2017-07-18 10:54 | Observation (INO) | payer OTHER ==
[2017-07-18] MEDS ORDERED: diphenhydrAMINE 25 MG CAP PO ONE (10:59)
[2017-07-18] MEDS ORDERED: DIAZEPAM 5 MG TAB PO ONE (10:59)
[2017-07-18] MEDS ORDERED: NS 1,000 ML IV ONE (10:59)
[2017-07-18] MEDS ORDERED: ceFAZolin 2 GM/DEXTROSE 100 ML IV ONE (10:59)
[2017-07-18] MEDS ORDERED: BACITRACIN IRRIGATION/NS 50,000 UNITS/1,000 ML BTL IRR ONE (10:59)
--- NOTE | 2017-07-18 11:20 | CPEKG ---
Heart Rate: 80 RR Interval: 750 P-R Interval: 128 QRSD Interval: 180 QT Interval: 468 QTC Interval: 540 P Fontana: 0 QRS Fontana: -87 T Wave Fontana: 79 EKG Severity - ABNORMAL ECG - EKG Impression: AFIB VENTRICULAR-PACED COMPLEXES Electronically Signed By: Melvin Townsend 18-Jul-2017 13:11:57
[2017-07-18] MEDS ORDERED: ceFAZolin 2 GM/SWFI 2 GM/20 ML SYR IVP ONE (11:30)
[2017-07-18 11:59] LABS: PLATELET COUNT 169 10^3/uL (150-400)
[2017-07-18 12:11] LABS: INR 1.5 (0.83-1.16); PROTIME(PATIENT) 18.3 SEC (12.0-15.0)
[2017-07-18] MEDS ORDERED: fentaNYL 100 MCG/2 ML INJ ONE (12:45)
[2017-07-18] MEDS ORDERED: PROPOFOL 200 MG/20 ML VIAL ONE (12:45)
[2017-07-18] MEDS ORDERED: PHENYLEPHRINE HCL 100 MCG/ML SYR ONE ×3 (13:09→14:09)
[2017-07-18] MEDS ORDERED: BUPIVACAINE 0.5% 30 ML SDV ONE (13:14)
[2017-07-18] MEDS ORDERED: IOPAMIDOL (ISOVUE-300) 100 ML BTL ONE (13:14)
[2017-07-18] MEDS ORDERED: LIDOCAINE 1% 300 MG/30 ML SDV ONE (13:14)
[2017-07-18] MEDS ORDERED: DEXAMETHASONE 4 MG/ML VIAL ONE (13:52)
[2017-07-18] MEDS ORDERED: ONDANSETRON 4 MG/2 ML VIAL ONE (13:52)
--- NOTE | 2017-07-18 14:47 | CPEKG ---
Heart Rate: 75 RR Interval: 800 P-R Interval: 145 QRSD Interval: 122 QT Interval: 400 QTC Interval: 447 P Tonica: 0 QRS Tonica: -22 T Wave Tonica: -89 EKG Severity - ABNORMAL ECG - EKG Impression: atrial fibrillation EKG Impression: PROBABLE ANTEROSEPTAL INFARCT, AGE INDETERM Electronically Signed By: Melvin Townsend 18-Jul-2017 15:21:58
[2017-07-18] MEDS ORDERED: DILTIAZEM CD 120 MG CAP PO SCH (21:00)
[2017-07-18] MEDS ORDERED: MAGNESIUM OXIDE 400 MG TAB PO SCH (21:00)
[2017-07-18] MEDS ORDERED: WARFARIN SODIUM 2.5 MG TAB PO SCH (21:00)
[2017-07-18] MEDS ORDERED: CHOLECALCIFEROL VIT D3 2,000 UNITS TAB/CAP PO SCH (21:00)
[2017-07-18] MEDS ORDERED: ASPIRIN EC 81 MG TAB PO SCH (21:00)
[2017-07-18] MEDS ORDERED: MULTIVITAMINS 1 EACH TAB PO SCH (21:00)
[2017-07-18] MEDS ORDERED: FUROSEMIDE 20 MG TAB PO SCH (21:00)
[2017-07-19 04:22] LABS: PLATELET COUNT 158 10^3/uL (150-400)
[2017-07-19] MEDS ORDERED: LEVOTHYROXINE 50 MCG TAB PO SCH (06:00)
--- NOTE | 2017-07-19 08:54 | CPEKG ---
Heart Rate: 78 RR Interval: 769 QRSD Interval: 120 QT Interval: 408 QTC Interval: 465 QRS Swink: 63 T Wave Swink: -88 EKG Severity - ABNORMAL ECG - EKG Impression: ATRIAL FIBRILLATION EKG Impression: IVCD, CONSIDER ATYPICAL RBBB EKG Impression: ANTERIOR INFARCT, AGE INDETERMINATE EKG Impression: ST DEPRESSION, CONSIDER ISCHEMIA, LAT LEADS Electronically Signed By: Clifford Walker 19-Jul-2017 10:37:57
[2017-07-19] MEDS ORDERED: SPIRONOLACTONE 25 MG TAB PO SCH (09:00)
[2017-07-19] MEDS ORDERED: Herbals/Supplements -Info Only PO SCH (09:00)
[2017-07-19 11:20] VITALS: BP 114/69
--- NOTE | 2017-07-19 11:43 | ASDISCHSUM ---
Discharge Information Plan Status:Home with No Needs Medically Cleared to Leave:07/19/2017 Discharge Date:07/19/2017 CM D/C Disposition:Home, Routine, Self-Care ADT D/C Disposition:Home, Routine, Self-Care Projected Discharge Date:07/19/2017 Transportation at D/C:Family Discharge Delay Reason: Follow-Up Date:07/19/2017 Discharge Slot: Final Diagnosis: Placement Information Patient Contact Information Contact Name:TAWNY Relationship:Daughter Address:[address] [place] Work Phone: City:[facility] Phone: State/Zip Code:[place] [address] Email: Financial Information Financial Class:Medicare Primary Plan Desc:MEDICARE OUTPATIENT Primary Plan Number:[id number] Secondary Plan Desc:[facility] Secondary Plan Number:[id number] Assessment Information LACE LACE Length of stay for Answers: Less than 1 day current admission Acuity / Level of Answers: No Care: Did the patient have an inpatient admission? # of Emergency department Answers: 0 visits in the last 6 months Date Signed: 07/19/2017 11:42 AM Electronically Signed By:Lori Martinez RN Case Management Discharge Plan Note Case Management Discharge Discharge Order Complete? Answers: Yes Patient to Obtain Answers: via Family Medications Transportation Arranged Answers: Family/Friends Family Notified Answers: Yes Notes: in room Discharge Comments Notes: 07/19/2017 Case Management Note Met w/pt and daughter Fabián [phone]. Pt lives with daughter. He is driving and independent in ADL's prior to admission. There are no PT or OT orders. Pt to d/c independent. Date Signed: 07/19/2017 11:41 AM Electronically Signed By:Lori Martinez RN Intervention Information Intervention Type:*REDMOND-Signed Date of Service:07/19/2017 10:28 AM Patient Type:Observation Staff Member:Tori Flaherty Hours: Discipline: Severity: Comment:
--- NOTE | 2017-07-19 13:23 | GDS ---
[f rep st] DISCHARGE SUMMARY DISCHARGE DIAGNOSES: 1. Apical hypokinesis with dyssynchrony on recent echo with a decrement in ejection fraction to 45%. 2. Recent worsening of fatigue and weakness. 3. Upgrade to biventricular pacemaker in this admission. 4. History of coronary artery disease. 5. History of mitral valve repair. 6. History of coronary artery bypass graft. 7. History of sick sinus syndrome status post permanent pacemaker. 8. Longstanding persistent atrial fibrillation. PROCEDURE: 07/18/2017, upgrade to a biventricular pacemaker with the addition of Biotronik lead. BRIEF HISTORY: Please see dictated H and P by Dr. Townsend for complete details. In brief, the patient i s an 86-year-old male with a history of CAD, permanent pacemaker, mitral valve repair, CABG, and long standing persistent atrial fibrillation who was noting fatigue and review of the pacemaker showed essie t he was pacing in his RV 100% of the time. Additionally, his LVEF had dropped to 45% and there was evidence of apical hypokinesis with dyssynchrony. Options were reviewed and patient was brought in f or upgrade of BiV permanent pacemaker. This was done on 07/18/2017. On day of discharge, patient de nies any pain at the left pectoral region. He denies any dyspnea, PND, orthopnea or chest pains. PHYSICAL EXAM: VITAL SIGNS: On day of discharge, blood pressure 114/69, heart rate of 70, respirati ons 17, O2 saturation 95% on room air. GENERAL: He is a pleasant male in no apparent distress. HEA D: Normocephalic, atraumatic. EYES: PERRL. HEART: Regular rate and rhythm. LUNGS: Clear. Left pectoral region without ecchymosis or hematoma present. LABORATORY DATA: CBC with WBC 6.36, hemoglobin 14.2, hematocrit 43.5, platelet count 158. BMP with sodium 139, potassium 5.2, chloride 101, CO2 27, BUN 65, creatinine 1.5, glucose 131. INR 1.5. RESULTS PENDING: None. DIET: Cardiac. ACTIVITY: Left arm precautions were reviewed. DISCHARGE MEDICATIONS: Please see med reconciliation for complete details. He is to continue his ho me Lasix 20 mg p.o. daily, diltiazem 120 p.o. HS, digoxin 125 mcg p.o. HS, aspirin 81 mg p.o. daily, warfarin, magnesium, vitamin D, spironolactone, levothyroxine. DISCHARGE INSTRUCTIONS: 1. Continue Coumadin and have an INR on Tuesday. 2. Arm precautions as reviewed. 3. Pacer clinic as scheduled. 4. Follow up with Dr. Townsend in 3 months' time when he returns from [place]. /[id number]/MODL
[2017-07-22] MEDS ORDERED: WARFARIN SODIUM 2.5 MG TAB PO SCH (21:00)
--- NOTE | 2017-07-30 11:46 | GPROG ---
[f rep st] PROGRESS NOTE Post-anesthesia Note Chart reviewed. No apparent anesthesia complications. /[id number]/MODL
== END 2017-07-19 12:31 | disposition home or self-care (01) ==
LOC: FCATH 10:54 → F2W 14:42
PROVIDERS: ADMIT Internal Medicine Cardiovascular Disease; ATTEND Internal Medicine Cardiovascular Disease
DX: I49.5 Sick sinus syndrome (principal); R93.1 Abnormal findings on diagnostic imaging of heart and coronary circulation; I25.10 Atherosclerotic heart disease of native coronary artery without angina pectoris; R53.83 Other fatigue; I48.1 Persistent atrial fibrillation; Z86.79 Personal history of other diseases of the circulatory system; Z95.1 Presence of aortocoronary bypass graft
CPT/HCPCS: 33225; 33229; 71045; 71046; 93005; C1769; C1900; C2621; J0690; J1100; J2370; J2405; J2704; J3010; Q9967

== ENCOUNTER → 2017-07-22 | Outpatient (CLI) | payer OTHER | LOC: FIMAGING 14:09 | PROVIDERS: ATTEND Internal Medicine Cardiovascular Disease | DX: Z13.6 Encounter for screening for cardiovascular disorders (principal); I73.9 Peripheral vascular disease, unspecified; I77.1 Stricture of artery ==

== ENCOUNTER → 2017-08-02 | Outpatient (CLI) | payer OTHER | LOC: FLAB 16:02 | PROVIDERS: ATTEND Nurse Practitioner Adult Health | DX: I51.7 Cardiomegaly (principal); Z95.0 Presence of cardiac pacemaker ==

== ENCOUNTER → 2018-02-10 | Outpatient (CLI) | payer OTHER | LOC: FIMAGING 11:29 | PROVIDERS: ATTEND Family Medicine | DX: R05 Cough (principal); J45.909 Unspecified asthma, uncomplicated; I50.9 Heart failure, unspecified; I25.10 Atherosclerotic heart disease of native coronary artery without angina pectoris ==

== ENCOUNTER → 2018-06-27 | Outpatient (CLI) | payer OTHER | LOC: FIMAGING 09:57 | PROVIDERS: ATTEND Internal Medicine Nephrology | DX: N18.3 Chronic kidney disease, stage 3 (moderate) (principal); N28.1 Cyst of kidney, acquired ==

== ENCOUNTER → 2018-07-04 | Outpatient (CLI) | payer OTHER | LOC: BHFA 11:30 | PROVIDERS: ATTEND Internal Medicine Cardiovascular Disease | DX: I48.91 Unspecified atrial fibrillation (principal) ==

== ENCOUNTER → 2018-07-06 | Outpatient (CLI) | payer OTHER | LOC: BHFA 10:00 | PROVIDERS: ATTEND Internal Medicine Interventional Cardiology | DX: I48.91 Unspecified atrial fibrillation (principal); I25.10 Atherosclerotic heart disease of native coronary artery without angina pectoris ==